=== PATIENT | male | born 2000 | race Caucasian/White ===

== ENCOUNTER 2022-09-21 17:07 | Emergency (ER) | payer MEDICAID, SELFPAY ==
[2022-09-21 17:11] VITALS: BP 163/91; PULSE 118; RESP 16; TEMP 36.7; O2SAT 98; BMI 42.3
--- NOTE | 2022-09-21 17:21 | W.ED.COVID ---
HPI - COVID General: Chief Complaint: COVID symptoms Stated Complaint: flu like symptoms Time Seen by Provider: 09/21/22 17:18 History of Present Illness: 22-year-old male patient that is working in healthcare as a maintainer plant nurse. Patient works at this facility. Patient reports illness for the last 2 days with fatigue, body aches, runny nose, and loss of taste. Patient appears nontoxic. Patient appears in no acute distress. COVID 19 common symptoms: positive chills and body aches; negative dyspnea or vomiting COVID 19 other sytmptoms: negative chest pain COVID Results: SARS-CoV-2 Antigen (Rapid) negative (Negative) 09/21/22 17:26 Review of Systems General: Reports: 10 or more systems reviewed and unremarkable except in HPI and below Const: Reports: chills, body aches and malaise ENMT: Reports: nasal discharge and other (Loss of taste) Card: Denies: chest pain Resp: Denies: dyspnea GI: Denies: vomiting Skin/Breast: Denies: rash Physical Exam Const: COMMON NORMALS: alert HENMT: COMMON NORMALS: normocephalic and TM's normal bilaterally HEAD & SCALP: normocephalic NOSE: Nasal discharge present TYMPANIC MEMBRANE: TM's normal bilaterally MOUTH: Normal oral and palatal mucosa present Neck/C-Spine: COMMON NORMALS: no meningeal signs Resp: COMMON NORMALS: normal respiratory effort Cardio: COMMON NORMALS: regular rate and regular rhythm RATE: regular rate RHYTHM: regular rhythm Extremity: COMMON NORMALS: normal to inspection Neuro: SENSORIUM/ORIENTATION: Yes alert MENINGEAL SIGNS: Yes no meningeal signs Skin: COMMON NORMALS: turgor normal GENERAL SKIN EXAM: turgor normal Course Vital Signs: Vital signs: Vital Signs Temperature 98.0 F 09/21/22 17:11 Pulse Rate 118 H 09/21/22 17:11 Respiratory Rate 16 09/21/22 17:11 Blood Pressure 163/91 09/21/22 17:11 Pulse Oximetry 98 09/21/22 17:29 Oxygen Delivery Me thod Room Air 09/21/22 17:29 MDM - COVID Medical Decision Making 22-year-old male patient comes in today for complaints of malaise, loss of taste, and nasal drainage. Lungs are clear to auscultation. Skin is warm and dry. Vital signs are normal except for some mild elevation in heart rate and blood pressure. Differential diagnosis includes but not limited to upper respiratory infection, allergic rhinitis, viral syndrome, COVID. COVID rapid antigen test was negative. Added PCR respiratory 2 panel testing for further evaluation. Recommended supportive care and follow-up as needed. Patient reported understanding and agreed to plan. Lab Data Laboratory Results SARS-CoV-2 Ag (Rapid) negative (Negative) 09/21/22 17:26 SARS-CoV-2 Antigen (Rapid) negative (Negative) 09/21/22 17:26 Discharge Plan Discharge Patient Disposition: Home Clinical Impression: Upper respiratory infection Qualifiers: URI type: unspecified URI Qualified Code(s): J06.9 - Acute upper respiratory infection, unspecified Condition: Stable Discharge Orders: Discharge ED (Routine); Ordered 09/21/22 Ordered By: Clemente Phoenix Discharge Diet: Usual diet Discharge Activity: Increase activity as tolerated Patient Instructions: Upper Respiratory Infection (ED) Activity Restrictions/Additional Instructions: Home and rest. Drink plenty of water and fluids. Use acetaminophen and/or ibuprofen for discomfort. Use [id number] cough and cold medication as needed for nasal congestion and cough. Follow-up with primary care as needed. Return to ED for worsening symptoms such as shortness of breath, severe chest pain, or inability to hold fluids down. Stand Alone Forms: Work/School Release Coding Level of Care Code ED Financial Services Agent for [employer]ed
[2022-09-21 17:29] VITALS: O2SAT 98
[2022-09-21 17:57] LABS: SARS Covid-2 Antigen negative (Negative)
[2022-09-21 20:11] LABS: Adenovirus Not Detected (NOT DETECT); Chlamydia Pneumoniae Not Detected (NOT DETECT); Coronavirus 229E,HKU1,NL63,OC4 Not Detected (NOT DETECT); Human Metapneumovirus Not Detected (NOT DETECT); Human Rhinovirus/Enterovirus Detected (NOT DETECT); Influenza A Not Detected (NOT DETECT); Influenza A H1 Not Detected (NOT DETECT); Influenza A H1-2009 Not Detected (NOT DETECT); Influenza A H3 Not Detected (NOT DETECT); Influenza B Not Detected (NOT DETECT); Mycoplasma Pneumoniae Not Detected (NOT DETECT); Parainfluenza Virus Type 1 Not Detected (NOT DETECT); Parainfluenza Virus Type 2 Not Detected (NOT DETECT); Parainfluenza Virus Type 3 Not Detected (NOT DETECT); Parainfluenza Virus Type 4 Not Detected (NOT DETECT); Respiratory Syncytial Virus A Not Detected (NOT DETECT); Respiratory Syncytial Virus B Not Detected (NOT DETECT); SARS-COV-2 Not Detected (NOT DETECT)
== END 2022-09-21 18:16 | disposition home or self-care (01) ==
PROVIDERS: Emergency Provider Nurse Practitioner Family
DX: J06.9 Acute upper respiratory infection, unspecified (principal)
CPT/HCPCS: 87426; 87486; 87581; 87633; 99283